=== PATIENT | male | born 1955 | race Two or more races ===

== ENCOUNTER 2024-10-12 15:20 | Inpatient (IN) | payer OTHER ==
[~2024-10-12] VITALS: Ht 167.6 cm; Wt 62.1 kg
--- NOTE | 2024-10-12 15:34 | NUR ---
PACIENTE TRAIDO EN AMBULANCIA TRANSFERIDO DEL [facility] POR ACUTE PROCTITIS ACEPTADO POR EL DR. NAM.
[2024-10-12] MEDS ORDERED: ROSUVASTATIN CA10 MG PO (15:36)
[2024-10-12] MEDS ORDERED: TRELEGY ELLIPT1 EACH IH (15:36)
[2024-10-12] MEDS ORDERED: SINGULAIR10 MG PO (15:36)
[2024-10-12] MEDS ORDERED: ZYRTEC10 MG PO (15:36)
[2024-10-12] MEDS ORDERED: JULUCA 50-25 M1 EACH PO (15:37)
[2024-10-12] MEDS ORDERED: RINGERS SOLUTION,LACTATED 1,000 ML IV SCH (16:30)
--- NOTE | 2024-10-12 16:53 | NUR ---
SE ORIENTA PTE SOBRE TX MEDICO EL CUAL REFIERE ENTENDER.SE LE EXTRAEN MUESTRAS BAJO MEDIDAS ASEPTICAS,SE CANALIZA Y SE COLOCAN FLUIDOS DE MANTENIMIETO.
[2024-10-12 17:03] LABS: HEMATOCRIT 45.9 % (39.0-48.0); MEAN CELL VOLUME 87.1 fL (80.0-100.00); MEAN CORPUSCULAR HEMOGLOBIN 30.4 pg (27.00-32.0); MEAN CORPUSCULAR HGB CONC 34.9 g/dl (32.0-36.0); PLATELET COUNT 208 K/uL (150-450); RED BLOOD COUNT 5.27 M/uL (4.00-6.00); RED CELL DISTRIBUTION WIDTH 15.5 % (11.5-14.5)
[2024-10-12 17:32] LABS: INR 1.05; PROTHROMBIN TIME 11.4 SECONDS (9.0-11.5)
[2024-10-12 17:33] LABS: ALBUMIN 3.6 gm/dL (3.4-5.0); BILIRUBIN TOTAL 0.93 mg/dL (0.3-1.2); CALCIUM 9.1 mg/dL (8.5-10.1); CREATININE SERUM 0.87 mg/dL (0.70-1.30); GFR 86.75; GLOBULINA 3.6 G/DL (2.4-3.5); POTASSIUM 4.38 mEq/L (3.5-5.1); TOTAL PROTEIN 7.2 gm/dL (6.4-8.2)
[2024-10-12] MEDS ORDERED: PIPERACILLIN/TAZOBACTAM SODIUM 3.375 GM in DEXTROSE 5 % IN WATER 100 ML IV SCH (19:36)
[2024-10-12] MEDS ORDERED: MONTELUKAST SODIUM 10 MG TABLET PO SCH (19:37)
[2024-10-12] MEDS ORDERED: ACETAMINOPHEN 500 MG GEL..CAP PO PRN (19:45)
[2024-10-12] MEDS ORDERED: 0.9 % SODIUM CHLORIDE 1,000 ML IV SCH (19:45)
[2024-10-12] MEDS ORDERED: ONDANSETRON HCL 4 MG in 0.9 % SODIUM CHLORIDE 50 ML IV PRN (19:45)
[2024-10-12] MEDS ORDERED: PIPERACILLIN/TAZOBACTAM SODIUM 3.375 GM VIAL IV ONE (21:45)
[2024-10-12 23:40] VITALS: BP 160/71; O2SAT 98
[2024-10-13 00:37] LABS: PH,URINE 5.5 (5.0-8.0); URINE APPEARANCE Clear; URINE BILIRRUBIN Negative (NEGATIVE); URINE BLOOD Negative; URINE COLOR Yellow; URINE GLUCOSE Negative (NEGATIVE); URINE LEUKOCYTE Negative; URINE NITRATE Negative; URINE PROTEIN Trace (NEGATIVE); URINE UROBILINOGEN 0.2 E.U./dl
[2024-10-13 00:40] LABS: URINE BACTERIA 14.6 uL (0.0-1933); URINE CAST 1.61 uL (0.0-1.40); URINE EPITHELIAL CELLS 8.6 uL (0.0-38.8); URINE RBC 19.7 uL (0.0-20.8); URINE WBC 10.1 uL (0.0-23.2)
[2024-10-13 00:55] LABS: URINE KETONE 80 (NEGATIVE)
[2024-10-13 02:46] VITALS: BP 142/75
[2024-10-13] MEDS ORDERED: ENOXAPARIN SODIUM 40 MG/0.4 ML SYRINGE SUBCUTANEO SCH (09:00)
[2024-10-13] MEDS ORDERED: FAMOTIDINE/PF 20 MG in 0.9 % SODIUM CHLORIDE 8 ML IV PUSH SCH ×2 (09:00→21:00)
[2024-10-13] MEDS ORDERED: LACTULOSE 20 G/30 ML BLIST.PACK PO SCH (09:00)
[2024-10-13 09:08] VITALS: BP 144/74; O2SAT 97
[2024-10-13] MEDS ORDERED: POLYETHYLENE GLYCOL 3350 17 GM BLIST.PACK PO SCH (13:00)
[2024-10-13] MEDS ORDERED: PATIENTS OWN MEDICATION (MEDICAMENTO EN PISO) PO SCH (17:00)
[2024-10-13 17:17] VITALS: BP 143/85; O2SAT 96
[2024-10-13] MEDS ORDERED: FAMOTIDINE/PF 20 MG/2 ML VIAL ONE (19:33)
[2024-10-14] MEDS ORDERED: PIPERACILLIN/TAZOBACTAM SODIUM 3.375 GM VIAL IV ONE (00:09)
[2024-10-14 01:31] VITALS: BP 165/66
[2024-10-14 08:36] VITALS: BP 123/57; O2SAT 98
[2024-10-14] MEDS ORDERED: FF) DOLUTEGRAVIR/RILPIVIRINE TABLET PO SCH (17:00)
[2024-10-14 17:01] VITALS: BP 128/74; O2SAT 96
[2024-10-15 02:04] VITALS: BP 143/80
[2024-10-15 09:02] VITALS: BP 114/66
[2024-10-15] MEDS ORDERED: MIDAZOLAM HCL 2 MG/2 ML VIAL IV ONE (11:45)
[2024-10-15] MEDS ORDERED: fentaNYL CITRATE 50 MCG/ML AMPUL IV ONE (11:45)
[2024-10-15] MEDS ORDERED: DIPHENHYDRAMINE HCL 50 MG/ML VIAL 1ML IV NR (13:00)
[2024-10-15 17:43] VITALS: BP 142/78
[2024-10-16 06:24] LABS: HEMATOCRIT 40.8 % (39.0-48.0); HEMOGLOBIN 14.5 g/dL (13-16.00); MEAN CELL VOLUME 85.9 fL (80.0-100.00); MEAN CORPUSCULAR HEMOGLOBIN 30.5 pg (27.00-32.0); MEAN CORPUSCULAR HGB CONC 35.5 g/dl (32.0-36.0); PLATELET COUNT 198 K/uL (150-450); RED BLOOD COUNT 4.75 M/uL (4.00-6.00)
[2024-10-16 08:57] VITALS: BP 100/60
[2024-10-16] MEDS ORDERED: POM (MEDICAMENTO EN PO (15:57)
[2024-10-16] MEDS ORDERED: AMOX-CLAV 875-1 EAC1 PO (15:57)
[2024-10-16] MEDS ORDERED: INTESTINEX680 M2 PO (15:57)
[2024-10-16] MEDS ORDERED: MONTELUKAST SOD10 MG PO (15:57)
[2024-10-16] MEDS ORDERED: JULUCA 50-25 M1 EACH PO (15:57)
== END 2024-10-16 16:25 | disposition home or self-care (01) | DRG 395 ==
LOC: ER 15:20 → SEC-K 20:59 → MEDI 23:32
PROVIDERS: General Practice; ADMIT Internal Medicine; ATTEND Internal Medicine
PROC: 0DBN8ZX Excision of Sigmoid Colon, Via Natural or Artificial Opening Endoscopic, Diagnostic (ICD-10-PCS; principal; 2024-10-15)
DX: K62.89 Other specified diseases of anus and rectum (principal); K59.00 Constipation, unspecified; Z21 Asymptomatic human immunodeficiency virus [HIV] infection status; E11.9 Type 2 diabetes mellitus without complications; Z79.4 Long term (current) use of insulin